=== PATIENT | female | born 1960 | race Caucasian/White ===

== ENCOUNTER 2016-12-18 22:52 | Emergency (ER) | payer SELFPAY ==
[~2016-12-18 22:52] MED LIST: CARDIZEM90 MG PO; FLEXERIL-DPS10 MG PO; LEVAQUIN DPS750 MG PO; LOPRESSOR DPS50 MG PO; NEURONTIN DPS300 MG PO; PRILOSEC DPS20 MG PO; TOPAMAX100 MG PO; TYLENOL DPS325 MG PO; ULTRAM DPS50 MG PO
== END 2016-12-19 01:05 | disposition home or self-care (01) ==
DX: S00.93XA Contusion of unspecified part of head, initial encounter (principal); E87.6 Hypokalemia; F10.10 Alcohol abuse, uncomplicated; I10 Essential (primary) hypertension; Z85.3 Personal history of malignant neoplasm of breast; W19.XXXA Unspecified fall, initial encounter